=== PATIENT | female | born 1940 | race Caucasian/White ===

== ENCOUNTER → 2016-12-17 | Outpatient (CLI) | payer MEDICARE, BC ==
--- NOTE | 2016-12-18 18:22 | RADRPT ---
PROCEDURE: XR Left Hip and pelvis. CLINICAL INDICATION: Left hip pain. Pelvic pain. Postop. TECHNIQUE: Three views. Frontal pelvis. Frontal and lateral left hip. COMPARISON: 06/18/2016. FINDINGS: There is no fracture or dislocation. The soft tissues are normal. There is diffuse osteopenia. There is a left hip hemiarthroplasty which appears satisfactory. There are moderate degenerative changes of the right hip with joint space narrowing and osteophytes. There is no lytic or blastic lesion. There are degenerative changes of the lower lumbar spine. IMPRESSION: 1. Satisfactory postoperative appearance of the left hip. 2. Diffuse osteopenia. 3. Moderate degenerative changes of the right hip. 4. Degenerative changes of the lower lumbar spine. RPTAT: QQ .Shamir Davila MD, Date Time Electronically viewed and signed by .Shamir Davila MD, on 12/18/2016 18:22 .R/
== END | disposition home or self-care (01) ==
LOC: HKI 13:34
PROVIDERS: ATTEND Orthopaedic Surgery
DX: Z47.89 Encounter for other orthopedic aftercare (principal); Z96.642 Presence of left artificial hip joint
CPT/HCPCS: 73502; G0463